=== PATIENT | female | born 1945 | race Caucasian/White ===

== ENCOUNTER → 2017-05-01 | Outpatient (CLI) | payer MEDICARE, OTHER ==
--- NOTE | 2017-05-01 19:37 | Diagnostic Imaging Report ---
INDICATION: Abnormal lab values. FINDINGS: Right kidney measures 11.0 x 5.0 x 5.6 cm. Left kidney measures 11.7 x 5.1 x 5.0 cm. There is no hydronephrosis. No renal masses are demonstrated. No renal calculi are seen. The bladder is empty. IMPRESSION: Normal-appearing kidneys with no evidence of hydronephrosis. Dictated by: Dictated on workstation # [id number]
== END ==
LOC: RAD 12:07
PROVIDERS: ATTEND Internal Medicine
DX: N18.3 Chronic kidney disease, stage 3 (moderate) (principal)
CPT/HCPCS: 76770

== ENCOUNTER → 2019-07-01 | Outpatient (CLI) | payer MEDICARE, OTHER ==
[~2019-07-01] VITALS: Ht 167 cm; Wt 96.0 kg
[~2019-07-01] MED LIST: CATHETER FLUSH 10 ML SYR IV PRN; REGADENOSON 0.4 MG/5 ML SYR (LEXISCAN) IV ONE
[2019-07-01 08:10] VITALS: BP 180/92
[2019-07-01 08:16] VITALS: BP 209/99
--- NOTE | 2019-07-04 09:58 | STRESS TEST ---
DATE OF SERVICE: 07/01/2019 RESTING AND POST REGADENOSON TECHNETIUM-99M TETROFOSMIN SPECT CT IMAGING ORDERING PHYSICIAN: Dr. Romero. PRIMARY PHYSICIAN: Dr. Romero. CLINICAL DIAGNOSIS: Near syncope. Baseline images were carried out after injection of 10.23 mCi of technetium-99m Tetrofosmin. This was followed by 0.4 mg regadenoson and 29.8 mCi of technetium-99m Tetrofosmin for stress imaging. The electrocardiogram showed sinus rhythm at baseline. It did not change significantly with the regadenoson infusion. Review of images at rest and following stress does not indicate significant perfusion defects consistent with significant myocardial ischemia or infarction. Gated images show normal global left ventricular systolic function with normal regional wall motion. Left ventricular ejection fraction is calculated to be 69%. Left ventricular end diastolic volume is 67 mL. TID is absent (1.04). CONCLUSIONS: 1. No evidence of any significant myocardial ischemia or infarction on this study. 2. Normal regional wall motion. 3. Normal global left ventricular systolic function with a calculated ejection fraction of 69%. Job ID: [id number] DocumentID: [id number] Dictated Date: 07/04/2019 09:44:19 Meteorological Aide Date: 07/04/2019 09:57:25 Dictated By: VIRGILIO MCRAE MD, MA, FACP, FACC,
== END ==
LOC: CARD 06:34
PROVIDERS: ATTEND Internal Medicine
DX: R55 Syncope and collapse (principal)
CPT/HCPCS: 78452; 93017